=== PATIENT | female | born 1975 | race Two or more races ===

== ENCOUNTER 2017-04-23 10:25 | Outpatient (CLI) | payer BC | END 2017-04-23 23:59 | disposition home or self-care (01) | LOC: MRI 10:25 | PROVIDERS: ATTEND Student in an Organized Health Care Education/Training Program | DX: S93.422A Sprain of deltoid ligament of left ankle, initial encounter (principal); M25.872 Other specified joint disorders, left ankle and foot; M25.472 Effusion, left ankle; X58.XXXA Exposure to other specified factors, initial encounter; Y93.89 Activity, other specified; Y92.89 Other specified places as the place of occurrence of the external cause; Y99.8 Other external cause status | CPT/HCPCS: 73721-TC ==

== ENCOUNTER 2018-03-05 14:36 | Outpatient (CLI) | payer BC | END 2018-03-05 23:59 | disposition home or self-care (01) | LOC: MRI 14:36 | PROVIDERS: ATTEND Physical Medicine & Rehabilitation Pain Medicine | DX: M48.56XA Collapsed vertebra, not elsewhere classified, lumbar region, initial encounter for fracture (principal); M48.061 Spinal stenosis, lumbar region without neurogenic claudication; M51.16 Intervertebral disc disorders with radiculopathy, lumbar region; M54.5 Low back pain | CPT/HCPCS: 72148-TC ==

== ENCOUNTER 2018-12-20 07:36 | Outpatient (CLI) | payer BC ==
[2018-12-20] MEDS ORDERED: CT SWABBABLE VALVE TRANS SET 1 EA INFUS.SET MC ONE (09:01)
[2018-12-20] MEDS ORDERED: IV NS 0.9% 250 ML IV ONE (09:01)
[2018-12-20] MEDS ORDERED: IOHEXOL-350 100 ML VIAL IV ONE (09:01)
[2018-12-20] MEDS ORDERED: NITROGLYCERIN 0.4 MG/TAB BOTTLE ONE (09:41)
[2018-12-20] MEDS ORDERED: METOPROLOL TARTRATE INJ 5 MG/5 ML AMPUL ONE (09:41)
== END 2018-12-20 23:59 | disposition home or self-care (01) ==
LOC: CT 07:36
PROVIDERS: ATTEND Internal Medicine Interventional Cardiology
DX: R07.9 Chest pain, unspecified (principal)
CPT/HCPCS: 75574; J3490; J7050; Q9967

== ENCOUNTER 2021-04-20 11:50 | Outpatient (CLI) | payer BC | END 2021-04-20 23:59 | disposition home or self-care (01) | LOC: MRI 11:50 | PROVIDERS: ATTEND Physical Medicine & Rehabilitation Pain Medicine | DX: S32.029A Unspecified fracture of second lumbar vertebra, initial encounter for closed fracture (principal); M47.817 Spondylosis without myelopathy or radiculopathy, lumbosacral region; M48.07 Spinal stenosis, lumbosacral region; M51.27 Other intervertebral disc displacement, lumbosacral region; M51.37 Other intervertebral disc degeneration, lumbosacral region; M51.46 Schmorl's nodes, lumbar region; X58.XXXA Exposure to other specified factors, initial encounter; Y93.89 Activity, other specified; Y92.89 Other specified places as the place of occurrence of the external cause; Y99.8 Other external cause status | CPT/HCPCS: 72148-TC ==

== ENCOUNTER 2021-10-10 08:49 | Outpatient (CLI) | payer BC | END 2021-10-10 23:59 | disposition home or self-care (01) | LOC: MRI 08:49 | DX: S32.020A Wedge compression fracture of second lumbar vertebra, initial encounter for closed fracture (principal); M47.816 Spondylosis without myelopathy or radiculopathy, lumbar region; M51.27 Other intervertebral disc displacement, lumbosacral region; M48.061 Spinal stenosis, lumbar region without neurogenic claudication; X58.XXXA Exposure to other specified factors, initial encounter; Y93.89 Activity, other specified; Y92.89 Other specified places as the place of occurrence of the external cause; Y99.8 Other external cause status | CPT/HCPCS: 72148-TC ==